=== PATIENT | male | born 1990 | race Two or more races ===

== ENCOUNTER 2024-09-29 06:13 | Emergency (ER) | payer SELFPAY ==
[~2024-09-29] VITALS: Ht 167.6 cm; Wt 97.5 kg
[2024-09-29] MEDS ORDERED: SWABABLE VALVE TRANSFER SET EA MC ONE (07:21)
[2024-09-29] MEDS ORDERED: IOHEXOL 300MG/ML 100 ML INFUS..BTL ONE (07:21)
[2024-09-29] MEDS ORDERED: IV NORMAL SALINE 250 ML IV ONE (07:22)
[2024-09-29 07:27] LABS: BASOPHILS % (AUTO) 0.5 % (0.0-2.0); EOSINOPHILS # (AUTO) 0.1 K/uL (0.0-0.7); EOSINOPHILS % (AUTO) 1.4 % (0.0-7.0); HEMATOCRIT 46.1 % (36.7-47.1); HEMOGLOBIN 16.2 g/dL (12.5-16.3); LYMPHOCYTES # (AUTO) 1.5 K/uL (0.8-4.8); LYMPHOCYTES % (AUTO) 16.1 % (20.5-51.5); MEAN CORPUSCULAR HEMOGLOBIN 29.1 uug (23.8-33.4); MEAN CORPUSCULAR HGB CONC 35 g/dL (32.5-36.3); MEAN CORPUSCULAR VOLUME 82.9 fL (73.0-96.2); MONOCYTES # (AUTO) 0.5 K/uL (0.1-1.30); MONOCYTES % (AUTO) 4.9 % (0.0-11.0); NEUTROPHILS # (AUTO) 7.1 K/uL (1.8-8.9); NEUTROPHILS % (AUTO) 77.1 % (38.5-71.5); PLATELET COUNT (AUTO) 285 K/uL (152-348); RED BLOOD CELL COUNT(AUTO) 5.56 MIL/uL (4.06-5.63); RED CELL DISTRIBUTION WIDTH 13.5 % (12.1-16.2); WHITE BLOOD COUNT (AUTO) 9.2 K/uL (3.6-10.2)
[2024-09-29 07:41] LABS: DIFFERENTIAL COMMENT 1
[2024-09-29 07:46] LABS: BILIRUBIN,DIRECT 0.1 mg/dL (0.0-0.2); BILIRUBIN,TOTAL 0.4 mg/dL (0.2-1.0); TOTAL PROTEIN, SERUM 8.7 g/dL (6.4-8.2)
[2024-09-29] MEDS ORDERED: HYDROMORPHONE 2 MG/1 ML DISP.SYRIN ONE (07:52)
[2024-09-29] MEDS ORDERED: KETOROLAC TROMETHAMINE 30 MG INJ ONE (07:52)
[2024-09-29] MEDS ORDERED: ONDANSETRON 4 MG/2 ML VIAL ONE (07:52)
[2024-09-29] MEDS: HYDROMORPHONE 1 MG/1 ML DISP.SYRIN IV ONE (07:53)
[2024-09-29] MEDS: ONDANSETRON 4 MG/2 ML VIAL IV ONE (07:53)
[2024-09-29] MEDS: KETOROLAC TROMETHAMINE 30 MG INJ IVP ONE (07:53)
[2024-09-29] MEDS ORDERED: OXYC-133 PO (09:13)
[2024-09-29] MEDS ORDERED: LIDO30AD10 TP (09:13)
[2024-09-29 09:48] VITALS: BP 137/82; O2SAT 97
== END 2024-09-29 09:49 | disposition home or self-care (01) ==
LOC: ER 06:16
DX: S22.42XA Multiple fractures of ribs, left side, initial encounter for closed fracture (principal); S16.1XXA Strain of muscle, fascia and tendon at neck level, initial encounter; S27.321A Contusion of lung, unilateral, initial encounter; S09.8XXA Other specified injuries of head, initial encounter; E11.9 Type 2 diabetes mellitus without complications; J81.1 Chronic pulmonary edema; R51.9 Headache, unspecified; K57.30 Diverticulosis of large intestine without perforation or abscess without bleeding; K76.0 Fatty (change of) liver, not elsewhere classified; V89.2XXA Person injured in unspecified motor-vehicle accident, traffic, initial encounter; Y93.89 Activity, other specified; Y92.89 Other specified places as the place of occurrence of the external cause; Y99.8 Other external cause status
CPT/HCPCS: 99285; 70450; 96374; 96375; 80076; 80048; 85025; 36415; 71111; 72125; 74177; J1885; J2405; Q9967; J1171; A4606; A4663